=== PATIENT | female | born 1950 | race Caucasian/White ===

== ENCOUNTER 2017-02-28 09:50 | Day surgery (SDC) | payer MEDICARE ==
[~2017-02-28] VITALS: Ht 172.7 cm; Wt 81.2 kg
[~2017-02-28 09:50] MED LIST: AMLO5TAB PO; AMLODIPINE10 MG PO; ASPIRIN 81MG TA81 MG PO; AVPAK LEVETIRA500 MG PO; CARAFATE1 GM PO; CEFDINIR 300MG300 MG PO; CEFTIN 250MG T250 MG PO; CELEXA40 MG PO; COZAAR50 MG PO; DAILY MULTIPLE1 T11 PO; FAMOTIDINE 20MG20 MG PO; GABAPENTIN100 M1 PO; IMODIUM MULTI-S1 TAB PO; INSULIN GL100 UNITS/ SC; KEPPRA 500 MG500 MG PO; LACTULOSE20 GM/30 M FT; LANTUS INS100 UNITS/ SC; LOSARTAN POTASS50 MG PO; LOVENOX 4040 MG/0.1 IJ; METOPROLOL25 MG PO; MICRO-K 10 MEQ10 MEQ PO; NEURONTIN 300M300 MG PO; NORCO 325 MG-51 TAB PO; Novolog100 U/ML SC; PERCOCET 325 MG1 TA3 PO; PHENERGAN 25MG.25 M1 PO; PLAVIX75 MG PO; POTASSIUM CHLO10 ME3 PO; POTASSIUM CHLO20 ME2 PO; Pepcid20 MG PO; SERTRALINE 100100 MG PO; SIMVASTATIN80 MG PO; THE MEDICINE SH20 M1 PO; TRAMADOL 50MG T50 M1 PO; TYLENOL ES500 MG PO; VICODIN 5/500 T1 TAB PO; ZOCOR80 MG PO
--- NOTE | 2017-02-28 11:38 | Operative Note ---
Upper GI Endoscopy Procedure date: 02/28/17 Date of : 48 Procedure:Upper GI Endoscopy Esophagogastroduodenoscopy with cold biopsies Indications: Mrs. Forrester is a 66-year-old female he did have an upper gastrointestinal series in the fall of 2016 which showed 2 persistent filling defects in the descending portion of the duodenum. She does state that she had someone looked that she is going to have this repeated. She does have chronic gastroesophageal reflux disease which is controlled with omeprazole. She reports no abdominal pain, nausea, vomiting, melena or dysphagia. She reports no weight loss. Performing Provider: Félix Rose MD Referring Provider: Humberto Marte M.D. Sedation: MAC sedation Procedure: Prior to the procedure, a history and physical exam was performed, and patients medications and allergies were reviewed. The risks and benefits of the procedure and the sedation options and risks were discussed with the patient. All questions were answered and informed consent was obtained. The patient was brought to the procedure room. Patient identification and proposed procedure were verified by the physician and the nurse. The patient was placed in a left lateral decubitus position and the scope was passed under direct vision. Throughout the procedure, the patient's blood pressure, pulse, and oxygen saturations were monitored continuously. The endoscope was introduced through the mouth, and advanced to the second part of duodenum. The upper GI endoscopy was accomplished without difficulty. The patient tolerated the procedure well. Findings: The scope was passed directly into the upper esophagus and advanced to the third portion of the duodenum. The post bulbar duodenum and duodenal bulb were normal with normal mucosa and conniventes. The descending duodenum/second portion was examined carefully. There was a longer segment of the transmural portion of the biliary tract that could be seen visibly causing some extrinsic compression but there was no evidence of any polyps, lipomas or benign lesions within the duodenum. The scope was withdrawn through a normal duodenal bulb and pylorus into the stomach. There was minimal reactive gastritis of the antrum. The remainder of the antrum, body and fundus of the stomach were grossly normal. Upon retroflexion there was no hiatal hernia. 2 biopsies were taken in the antrum and along the lesser curvature for histology. The scope was then withdrawn into the esophagus. There was some esophageal dysmotility/ presbyesophagus with nonerosive gastroesophageal reflux disease. There was no evidence of Ayoub's esophagus or reflux esophagitis. The remainder of the esophageal mucosa was normal. Immediate complications: None EBL (ml): 0 Impression: 1. Nonerosive gastroesophageal reflux disease with mild esophageal dysmotility/ presbyesophagus Recommendations: The patient is clinically asymptomatic and there were no polyps or masses within the duodenum. I will follow up the biopsies. The patient can follow up when necessary. She will continue omeprazole for control of her gastroesophageal reflux disease. at [id number]
[2017-02-28 13:04] VITALS: BP 150/83
== END 2017-02-28 12:20 | disposition home or self-care (01) ==
LOC: SDC 09:50
PROVIDERS: Internal Medicine Gastroenterology
PROC: 0DB78ZX Excision of Stomach, Pylorus, Via Natural or Artificial Opening Endoscopic, Diagnostic (ICD-10-PCS; principal; 2017-02-28 11:00)
DX: K21.9 Gastro-esophageal reflux disease without esophagitis (principal); K22.4 Dyskinesia of esophagus; E11.9 Type 2 diabetes mellitus without complications